=== PATIENT | male | born 1985 | race African-American/Black ===

== ENCOUNTER 2021-11-09 13:21 | Outpatient (CLI) | payer OTHER | END 2021-11-09 13:22 | disposition home or self-care (01) | LOC: CSHCT 13:21 | PROVIDERS: ATTEND Family Medicine Sports Medicine | DX: I26.99 Other pulmonary embolism without acute cor pulmonale (principal); R91.8 Other nonspecific abnormal finding of lung field | CPT/HCPCS: 71275 ==